=== PATIENT | male | born 1950 | race Caucasian/White ===

== ENCOUNTER 2020-12-31 09:29 | Inpatient (IN) | payer MEDICARE, MEDICAID ==
[~2020-12-31] VITALS: Ht 162.6 cm; Wt 74.8 kg
[2020-12-31] MEDS ORDERED: ONDANSETRON HCL 4MG/2ML INJ IV ONE (10:15)
[2020-12-31] MEDS ORDERED: MORPHINE SULFATE 2 MG/ML CPJ (NOT FOR IM USE) IV ONE (10:15)
[2020-12-31 10:57] LABS: BASOPHILS % 0.3 % (0.0-2.0); EOSINOPHILS % 1.2 % (0.0-5.0); HEMATOCRIT. 43.4 % (42.0-52.0); HEMOGLOBIN. 15.2 g/dL (14.0-18.0); LYMPHOCYTES % 13.4 % (20.0-50.0); MEAN CORPUSCULAR HEMOGLOBIN 29.9 pg (28.0-32.0); MEAN CORPUSCULAR VOLUME 85.2 fL (80.0-94.0); MONOCYTES % 9.1 % (2.0-8.0); PLATELET 277 x1000/uL (130-400)
[2020-12-31 11:03] LABS: CHLORIDE 96 mEq/L (98-107)
[2020-12-31 11:16] LABS: CLARITY URINE CLEAR (CLEAR); COLOR URINE YELLOW (YELLOW); KETONES URINE 1+ (NEGATIVE); LEUKOCYTE ESTERASE URINE NEGATIVE (NEGATIVE); NITRITE URINE NEGATIVE (NEGATIVE); OCCULT BLOOD URINE NEGATIVE (NEGATIVE); PROTEIN URINE TRACE (NEGATIVE)
[2020-12-31] MEDS ORDERED: LEVOFLOXACIN 500MG PREMIX 100 ML IV ONE (13:15)
[2020-12-31] MEDS ORDERED: CEFTRIAXONE 1 G PREMIX 50 ML IV ONE (13:15)
[2020-12-31] MEDS ORDERED: MORPHINE SULFATE 4 MG/ML CPJ (NOT FOR IM USE) IV STA (13:18)
[2020-12-31] MEDS ORDERED: ONDANSETRON HCL 4MG/2ML INJ IV STA (13:18)
[2020-12-31] MEDS ORDERED: SODIUM CHLORIDE 0.9% 1000ML BAG (SEPSIS BOLUS) IV ONE (13:30)
[2020-12-31 14:11] LABS: PROTHROMBIN TIME 10.5 sec (9.6-11.0)
[2020-12-31 17:00] VITALS: BP_SYST 122; BP_DIAS 64; BP_DIAS 67
[2020-12-31] MEDS ORDERED: LORAZEPAM 0.5MG TABLET PO PRN (18:30)
[2020-12-31] MEDS ORDERED: IPRATROPIUM/ALBUTEROL 0.5-3(2.5)MG/3ML NEB HHN PRN (18:30)
[2020-12-31] MEDS ORDERED: ONDANSETRON HCL 4MG/2ML INJ IV PRN (18:30)
[2020-12-31] MEDS ORDERED: DOCUSATE SODIUM 100MG CAPSULE PO PRN (18:30)
[2020-12-31] MEDS ORDERED: CLONIDINE 0.1MG TABLET PO PRN (18:30)
[2020-12-31] MEDS ORDERED: ACETAMINOPHEN 325MG TABLET PO PRN ×2 (18:30)
[2020-12-31] MEDS ORDERED: NALOXONE HCL 0.4MG/ML VIAL IV PRN (18:45)
[2020-12-31 20:00] VITALS: BP 109/65
[2021-01-01] VITALS: BP 117/73
[2021-01-01 04:00] VITALS: BP 102/62
[2021-01-01] MEDS: HYDROCODONE/ACETAMINOPHEN 5/325MG TABLET PO PRN ×2 (06:27→12:42)
[2021-01-01 08:00] VITALS: BP 105/72
[2021-01-01 12:00] VITALS: BP 116/73
[2021-01-01 16:00] VITALS: BP 96/61
[2021-01-01 20:00] VITALS: BP 107/64
[2021-01-02] VITALS: BP 110/67
[2021-01-02 04:00] VITALS: BP 122/75
[2021-01-02] MEDS ORDERED: DEXTROSE 50% WATER 50ML SYRINGE IV PRN (04:45)
[2021-01-02] MEDS: BLOOD SUGAR DIAGNOSTIC STRIP TEST SCH ×4 (07:30→20:59)
[2021-01-02 08:00] VITALS: BP 132/87
[2021-01-02] MEDS: INSULIN LISPRO 100 UNITS/ML SUBCUT SCH ×4 (09:46→20:58)
[2021-01-02 12:00] VITALS: BP 131/79
[2021-01-02] MEDS: HYDROCODONE/ACETAMINOPHEN 5/325MG TABLET PO PRN (12:17)
[2021-01-02 16:00] VITALS: BP 121/70
[2021-01-02 20:00] VITALS: BP 99/70
[2021-01-03] VITALS: BP 137/80
[2021-01-03 04:00] VITALS: BP 131/70
[2021-01-03 05:03] LABS: BASOPHILS % 0.4 % (0.0-2.0); EOSINOPHILS % 4.1 % (0.0-5.0); HEMATOCRIT. 47.7 % (42.0-52.0); HEMOGLOBIN. 15.7 g/dL (14.0-18.0); LYMPHOCYTES % 23.9 % (20.0-50.0); MEAN CORPUSCULAR HEMOGLOBIN 28.5 pg (28.0-32.0); MEAN CORPUSCULAR VOLUME 86.6 fL (80.0-94.0); MONOCYTES % 7.8 % (2.0-8.0); NEUTROPHILS % 63.8 % (40.0-76.0); PLATELET 311 x1000/uL (130-400); RED BLOOD CELL COUNT 5.51 mill/uL (4.7-6.1); RED CELL DISTRIBUTION WIDTH 13.4 % (11.6-14.6)
[2021-01-03 05:53] LABS: CHLORIDE 99 mEq/L (98-107)
[2021-01-03] MEDS: BLOOD SUGAR DIAGNOSTIC STRIP TEST SCH ×3 (06:32→17:04)
[2021-01-03 08:00] VITALS: BP 133/79
[2021-01-03] MEDS ORDERED: POTASSIUM CHLORIDE 20MEQ TABLET SR PO SCH (08:15)
[2021-01-03] MEDS: INSULIN LISPRO 100 UNITS/ML SUBCUT SCH ×3 (08:39→17:44)
[2021-01-03] MEDS ORDERED: HYDR-4001 MT (11:52)
[2021-01-03] MEDS ORDERED: TOPUD PO (11:52)
[2021-01-03] MEDS ORDERED: NALO4SPR BOTHNSTRLS (11:52)
[2021-01-03 12:00] VITALS: BP 125/80
[2021-01-03 16:00] VITALS: BP 130/69
[2021-01-03 16:54] VITALS: BP 130/68
== END 2021-01-03 18:50 | disposition home health service (06) | DRG 552 ==
LOC: ER 09:29 → 6EST 13:48 → ENRESERV 15:09 → 6EST 17:32
PROVIDERS: ADMIT Internal Medicine; ATTEND Internal Medicine
DX: M47.816 Spondylosis without myelopathy or radiculopathy, lumbar region (principal); N39.0 Urinary tract infection, site not specified; M50.90 Cervical disc disorder, unspecified, unspecified cervical region; M48.02 Spinal stenosis, cervical region; M47.812 Spondylosis without myelopathy or radiculopathy, cervical region; E78.00 Pure hypercholesterolemia, unspecified; E78.5 Hyperlipidemia, unspecified; I10 Essential (primary) hypertension; G89.29 Other chronic pain; E11.65 Type 2 diabetes mellitus with hyperglycemia; R32 Unspecified urinary incontinence; Z82.49 Family history of ischemic heart disease and other diseases of the circulatory system; Z79.899 Other long term (current) drug therapy; M51.9 Unspecified thoracic, thoracolumbar and lumbosacral intervertebral disc disorder
CPT/HCPCS: 36415; 71045; 72141; 72146; 72148; 80048; 80053; 81003; 82962; 83036; 83605; 83880; 84145; 84484; 85025; 93005; 99291; J0696; J1815; J1956; J2270; J2405; J7030

== ENCOUNTER 2024-03-18 18:34 | Emergency (ER) | payer MEDICARE, MEDICAID ==
[~2024-03-18] VITALS: Ht 162.6 cm; Wt 70.0 kg
[~2024-03-18 18:34] MED LIST: HYDR-4001 MT; NALO4SPR BOTHNSTRLS; TOPUD PO
[2024-03-18 18:51] VITALS: O2SAT 98
[2024-03-18] MEDS: ACETAMINOPHEN 325MG TABLET PO STA (21:13)
[2024-03-18] MEDS ORDERED: NAPR-681 PO (21:23)
[2024-03-18 21:35] VITALS: BP 121/80; PULSE 98; RESP 20; TEMP 36.83628; O2SAT 98
== END 2024-03-18 21:35 | disposition home or self-care (01) ==
LOC: ER 18:34
DX: S20.229A Contusion of unspecified back wall of thorax, initial encounter (principal); M25.512 Pain in left shoulder; E11.9 Type 2 diabetes mellitus without complications; I10 Essential (primary) hypertension; E78.00 Pure hypercholesterolemia, unspecified; Z82.49 Family history of ischemic heart disease and other diseases of the circulatory system; W10.0XXA Fall (on)(from) escalator, initial encounter; Y93.89 Activity, other specified; Y92.89 Other specified places as the place of occurrence of the external cause; Y99.8 Other external cause status
CPT/HCPCS: 71045; 73030; 99284